=== PATIENT | female | born 1995 | race Two or more races ===

== ENCOUNTER 2022-06-15 20:53 | Emergency (ER) | payer MEDICAID ==
[~2022-06-15] VITALS: Ht 162.6 cm; Wt 77.0 kg
[~2022-06-15 20:53] MED LIST: PREN1TAB71 OR
[2022-06-15 21:26] VITALS: BP 124/86
[2022-06-15] MEDS ORDERED: AMOXICILLIN/CLAVUL 875 MG TAB PO ONE (21:30)
[2022-06-15] MEDS ORDERED: TETANUS-DIPTH-ACEL PERTUSSIS 0.5ML SYR Tdap IM ONE (21:30)
[2022-06-15] MEDS ORDERED: AUG875T PO (23:57)
[2022-06-15] MEDS ORDERED: MUPI2OIN2 EX (23:57)
[2022-06-15] MEDS ORDERED: IBU600T PO (23:57)
[2022-06-15] MEDS ORDERED: CYCL-839 PO (23:57)
[2022-06-16] MEDS ORDERED: IBUPROFEN 600 MG TAB PO ONE
== END 2022-06-16 04:30 | disposition home or self-care (01) ==
LOC: ER 20:53
DX: S06.0X0A Concussion without loss of consciousness, initial encounter (principal); S43.401A Unspecified sprain of right shoulder joint, initial encounter; S13.9XXA Sprain of joints and ligaments of unspecified parts of neck, initial encounter; S23.3XXA Sprain of ligaments of thoracic spine, initial encounter; S51.852A Open bite of left forearm, initial encounter; Y04.1XXA Assault by human bite, initial encounter; Y93.89 Activity, other specified; Y92.89 Other specified places as the place of occurrence of the external cause; Y99.8 Other external cause status
CPT/HCPCS: 70450; 72040; 72070; 73030

== ENCOUNTER 2024-04-24 20:04 | Emergency (ER) | payer MEDICAID ==
[~2024-04-24] VITALS: Ht 162.6 cm; Wt 92.9 kg
[~2024-04-24 20:04] MED LIST changes: +AUG875T PO; +CYCL-839 PO; +IBU600T PO; +MUPI2OIN2 EX
--- NOTE | 2024-04-24 20:33 | ED.PDOC ---
History of Present Illness HPI Comments 28 year old female presents to the ED with a chief complaint of vaginal bleeding onset 2 months. Patient states she has been experiencing intermittent vaginal bleeding for the past 2 months, noticed bleeding worsen today. Patient states she has not taken a test, unsure if she is . Denies PMHx as well as chest pain, shortness of breath, dysuria, headache, nausea, vomiting, diarrhea. No other symptoms or modifying factors present at this time. Time Seen by MD: 20:22 Reviewed Notes: Nurses Notes, Medications, Allergies Allergies: Coded Allergies: NO KNOWN ALLERGIES (Unverified , 09/04/17) Home Meds Active Scripts Cyclobenzaprine Hcl (Cyclobenzaprine Hcl) 10 Mg Tab, 10 MG PO BID, #10 TAB as neeeded for muscle spasm Prov:NAVARRO AGUILERA MEASUREMENT COORDINATOR 06/15/22 Mupirocin (Pseudomonas Fluores (Mupirocin) 2 % Oin, 2 % EX BID, #1 OIN apply to the affected area Prov:NAVARRO AGUILERA MEASUREMENT COORDINATOR 06/15/22 Ibuprofen Micronized (MOTRIN TABLET) 600 Mg Tb, 600 MG PO Q6HR PRN, #20 TAB as neede for pain Prov:NAVARRO AGUILERA MEASUREMENT COORDINATOR 06/15/22 Amoxicillin & Pot Clavulanate (AUGMENTIN TABLET) 875 Mg Tb, 875 MG PO BID for 10 Days, #20 TAB Prov:WILLYPRIETOESPINOZA Torres MEASUREMENT COORDINATOR 06/15/22 Reported Medications Vit W/ Ferrous Fumara (PNV PLUS MULTIVI) Plus Tab, 1 OR, TAB 09/02/17 Information Source: Patient Mode of Arrival: Ambulatory Severity: Moderate Timing: Months Duration: Intermittent Prehospital treatment: None Past Medical History PAST MEDICAL HISTORY: Denies Surgical History: Denies all surgeries FINANCIAL SUPERVISOR History: No Pertinent FINANCIAL SUPERVISOR History Family History Family History: Family hx of DM, Family hx of Cancer Social History Smoker: Cigarettes Alcohol: Denies ETOH Use Drugs: Marijuana Lives In: Home Constitutional: denies: chills, diaphoresis, fatigue, fever, malaise, sweats, weakness, others EENTM: denies: blurred vision, double vision, ear bleeding, ear discharge, ear drainage, ear pain, ear ringing, eye pain, eye redness, hearing loss, mouth pain, mouth swelling, nasal discharge, nose bleeding, nose congestion, nose pain, photophobia, tearing, throat pain, throat swelling, voice changes, others Respiratory: denies: cough, hemoptysis, orthopnea, SOB at rest, shortness of breath, SOB with excertion, stridor, wheezing, others Cardiovascular: denies: chest pain, dizzy spells, diaphoresis, Dyspnea on exertion, edema, irregular heart beat, left arm pain, lightheadedness, palpitations, PND, syncope, others Gastrointestinal: denies: abdomen distended, abdominal pain, blood streaked bowels, constipated, diarrhea, dysphagia, difficulty swallowing, hematemesis, melena, nausea, poor appetite, poor fluid intake, rectal bleeding, rectal pain, vomiting, others Genitourinary: reports: abnormal vagina bleeding; denies: burning, dyspareunia, dysuria, flank pain, frequency, hematuria, incontinence, pain, , vagina discharge, urgency, others Neurological: denies: dizziness, fainting, headache, left sided numbness, left sided weakness, numbness, paresthesia, pre-existing deficit, right sided numbness, right sided weakness, seizure, speech problems, tingling, tremors, weakness, others Musculoskeletal: denies: back pain, gout, joint pain, joint swelling, muscle p ain, muscle stiffness, neck pain, others Integumetry: denies: bruises, change in color, change in hair/nails, dryness, laceration, lesions, lumps, rash, wounds, others Allergic/Immunocompromised: denies: Difficulty Healing, Frequent Infections, Hives, Itching, others Hematologic/Lymphatic: denies: anemia, blood clots, easy bleeding, easy bruising, swollen glands, others Endocrine: denies: excessive hunger, excessive sweating, excessive thirst, excessive urination, flushing, intolerance to cold, intolerance to heat, unexplained weight gain, unexplained weight loss, others Psychiatric: denies: anxiety, bipolar disorder, depression, hopeless, panic disorder, schizophrenia, sleepless, suicidal, others All Other Systems: Reviewed and Negative Physical Exam General Appearance: No Apparent Distress HEENT: Normal ENT Inspection, Pharynx Normal, TMs Normal Neck: Full Range of Motion, Non-Tender, Normal, Normal Inspection Respiratory: Chest Non-Tender, Lungs Clear, No Accessory Muscle Use, No Respiratory Distress, Normal Breath Sounds Cardiovascular: No Edema, No JVD, No Murmur, No Gallop, Normal Peripheral Pulses, Regular Rate/Rhythm Breast Exam: Deferred Gastrointestinal: No Organomegaly, Non Tender, No Pulsatile Mass, Normal Bowel Sounds, Soft Genitalia: Deferred Pelvic: Deferred Rectal: Deferred Extremities: No calf tenderness, Normal capillary refill, Normal inspection, Normal range of motion, Non-tender, No pedal edema Musculoskeletal : Apperance: Normal Neurologic: Alert, plate glass polisher II-XII nml as Tested, No Motor Deficits, Normal Affect, Normal Mood, No Sensory Deficits Cerebellar Function: Normal Reflexes: Normal Skin: Dry, Normal Color, Warm Lymphatic: No Adenopathy Was a procedure done? Was a procedure done?: No Differential Dx Considerations may include: Threatened , vaginal bleeding, irregular bleed X-Ray, Labs, Meds, VS Vital Signs Date Time Temp Pulse Resp B/P (MAP) Pulse Ox O2 Delivery O2 Flow Rate FiO2 04/24/24 20:34 98.0 66 18 123/82 (96) 99 98.0 Lab Test 04/24/24 20:50 Range/Units White Blood Count 10.5 4.4-10.8 10^3/uL Red Blood Count 4.49 4.0-5.20 10^6/uL Hemoglobin 13.5 12.2-16.2 g/dL Hematocrit 40.1 36.0-46.0 % Mean Corpuscular Volume 89.3 80.0-100.0 fL Mean Corpuscular Hemoglobin 30.1 28.0-32.0 pg Mean Corpuscular Hemoglobin Concent 33.7 32.0-36.0 g/dL Red Cell Distribution Width 13.4 11.8-14.3 % Platelet Count 284 140-450 10^3/uL Mean Platelet Volume 8.4 6.9-10.8 fL Neutrophils (%) (Auto) 68.4 37.0-80.0 % Lymphocytes (%) (Auto) 21.6 10.0-50.0 % Monocytes (%) (Auto) 7.0 0.0-12.0 % Eosinophils (%) (Auto) 1.9 0.0-7.0 % Basophils (%) (Auto) 1.1 0.0-2.0 % Neutrophils # (Auto) 7.2 1.6-8.6 10 ^3/uL Lymphocytes # (Auto) 2.3 0.4-5.4 10 ^3/uL Monocytes # (Auto) 0.7 0-1.3 10 ^3/uL Eosinophils # (Auto) 0.2 0-0.8 10 ^3/uL Basophils # (Auto) 0.1 0-0.2 10 ^3/uL Nucleated Red Blood Cells 0.1 % Beta HCG, Quantitative 0.7 L 1.5-4.2 mIU/mL The CBC is within normal limits The quantitative hCG is negative The pelvic ultrasound shows: IMPRESSION: No acute findings as visualized. Small left ovarian cyst versus dominant follicle. At this time, the patient was being discharged and will follow up with the primary care doctor The patient will return to the emergency department's the condition worsens Images Reviewed?: Images reviewed and evaluated by me Time of 1ST Reevaluation: 20:55 Reevaluation 1ST: Unchanged Patient Education/Counseling: Diagnosis, Treatment, Prognosis, Need For Follow Up Family Education/Counseling: No Family Present Departure 1 Departure Time of Disposition: 22:20 Impression: Primary Impression: Irregular menstrual bleeding Disposition: 01 HOME / SELF CARE / HOMELESS Condition: Fair Discharged With: Self Critical Care Note Critical Care Time?: No Stability Stability form required: No Heart Score Heart Score: Heart Score Response (Comments) Value History N/A 0 EKG N/A 0 Age N/A 0 Risk Factors N/A 0 Troponin N/A 0 Total 0 I personally scribed for NEHA ODOM MD ([email or web address]) on 04/24/24 at 20:33. Electronically submitted by Doreen Mohr ([email or web address]). NEHA ODOM MD Apr 24, 2024 20:33
[2024-04-24 20:59] LABS: Basophils # (auto) 0.1 10 ^3/uL (0-0.2); Basophils % (auto) 1.1 % (0.0-2.0); Eosinophils # (auto) 0.2 10 ^3/uL (0-0.8); Eosinophils % (auto) 1.9 % (0.0-7.0); Hematocrit 40.1 % (36.0-46.0); Hemoglobin 13.5 g/dL (12.2-16.2); Lymphocytes # (auto) 2.3 10 ^3/uL (0.4-5.4); Lymphocytes % (auto) 21.6 % (10.0-50.0); Mean Corpuscular Hemoglobin 30.1 pg (28.0-32.0); Mean Corpuscular Hgb Conc. 33.7 g/dL (32.0-36.0); Mean Corpuscular Volume 89.3 fL (80.0-100.0); Monocytes # (auto) 0.7 10 ^3/uL (0-1.3); Neutrophils # (auto) 7.2 10 ^3/uL (1.6-8.6); Neutrophils % (auto) 68.4 % (37.0-80.0); Nucleated Red Blood Cells % 0.1 %; Platelet Count (auto) 284 10^3/uL (140-450); Red Blood Cells 4.49 10^6/uL (4.0-5.20); Red Cell Distribution Width 13.4 % (11.8-14.3); White Blood Cell 10.5 10^3/uL (4.4-10.8)
--- NOTE | 2024-04-24 21:56 | DVH ---
PELVIC ULTRASOUND WITH TRANSABDOMINAL IMAGING CLINICAL HISTORY: pain and bleeding COMPARISON: None TECHNIQUE: Transabdominal grayscale, color-flow Doppler, and duplex Doppler was performed. FINDINGS: Uterus: The uterus measures 8.2 x 5.5 x 7.3 cm. Uterine myometrium is grossly unremarkable. Endometrium: Double thickness of the endometrial stripe measures 0.4 cm. Endometrial thickness is uni form. Right ovary measures 2.3 x 1.1 x 1.8 cm. Left ovary measures 2.4 x 1.4 x 2.7 cm. Approximately 1.5 cm cyst versus dominant follicle on the left ovary. Both ovaries demonstrate dopplerable blood flow on spectral analysis. No free fluid identified in the cul-de-sac. IMPRESSION: No acute findings as visualized. Small left ovarian cyst versus dominant follicle.
[2024-04-24 22:30] VITALS: BP 114/75; TEMP 98.4
[2024-04-24 22:34] VITALS: PULSE 79; RESP 19; O2SAT 97
== END 2024-04-24 22:36 | disposition home or self-care (01) ==
LOC: ER 20:04
DX: N92.6 Irregular menstruation, unspecified (principal); R10.2 Pelvic and perineal pain; F17.210 Nicotine dependence, cigarettes, uncomplicated; F12.90 Cannabis use, unspecified, uncomplicated; Z79.899 Other long term (current) drug therapy
CPT/HCPCS: 36415; 76856; 84702; 85025